=== PATIENT | female | born 1985 | race Caucasian/White ===

== ENCOUNTER 2022-08-15 19:00 | Inpatient (IN) | payer BC ==
[2022-08-16] MEDS ORDERED: Bupivacaine 0.25% HCL 30 ML VIAL ONE (08:00)
[2022-08-16] MEDS ORDERED: ePHEDrine Sulfate 50 MG/10 ML VIAL ONE (08:00)
[2022-08-16] MEDS ORDERED: Lidocaine 1% (PF) 30 ML VIAL SC PRN (21:51)
[2022-08-16] MEDS ORDERED: NS w/ Oxytocin 30 units 500 ML IV SCH ×2 (21:51)
[2022-08-16] MEDS ORDERED: Methylergonovine 0.2 MG/ML VIAL IM PRN (21:51)
[2022-08-16] MEDS ORDERED: Misoprostol 200 MCG TAB PR PRN (21:51)
[2022-08-16] MEDS ORDERED: Ibuprofen 800 MG TAB PO PRN (21:51)
[2022-08-16] MEDS ORDERED: Butorphanol Tartrate 1 MG/ML VIAL SLOW IVP PRN (21:51)
[2022-08-16] MEDS ORDERED: Carboprost 250 MCG/ML AMP IM PRN (21:51)
[2022-08-16] MEDS ORDERED: Diphenoxylate HCl/Atropine Tablet PO PRN ×2 (21:51)
[2022-08-16] MEDS ORDERED: hydrALAZINE 20 MG/ML VIAL SLOW IVP PRN (21:51)
[2022-08-16] MEDS ORDERED: HYDROcodone/Acetaminophen 5/325 mg Tablet PO PRN ×2 (21:51)
[2022-08-16] MEDS ORDERED: Promethazine HCl 25 MG/ML VIAL IM PRN (21:51)
[2022-08-16] MEDS ORDERED: Acetaminophen 500 MG TAB PO PRN (21:51)
[2022-08-16] MEDS ORDERED: Ondansetron PF 4 MG/2 ML Vial IVP PRN (21:51)
[2022-08-16 22:16] VITALS: BMI 29.5
[2022-08-16] MEDS: Lactated Ringer's 1,000 ML IV SCH (22:18)
[2022-08-16] MEDS ORDERED: Misoprostol 100 MCG TAB ONE (22:43)
[2022-08-16] MEDS: Misoprostol 100 MCG TAB VAG SCH (22:47)
[2022-08-16 23:17] LABS: Hemoglobin 11.3 g/dL (12.0-15.5); Mean Corpuscular HGB CONC 33.1 g/dL (32.0-36.0); Mean Corpuscular Hemoglobin 28.8 pg (27.0-33.0); Mean Platelet Volume 12.6 fl (7.4-10.4); Platelet Count 162 10x3/uL (150-450); Red Blood Cell (RBC) Count 3.92 10x6/uL (3.90-5.03); White Blood Cell (WBC) Count 8.4 10x3/uL (3.5-10.5)
[2022-08-16 23:48] LABS: SARS-CoV-2 NAA Rapid Test Not Detected (NotDetected)
[2022-08-16 23:49] LABS: Hep B Surf Ag Non-Reactive S/CO (NonReactive)
[2022-08-16 23:50] LABS: Syphilis Antibody Nonreactive (Nonreactive); Syphilis Antibody Index 0.06 S/CO (<1.00 Non-Reactive)
[2022-08-17] MEDS: Misoprostol 100 MCG TAB VAG SCH ×2 (03:00→13:18)
[2022-08-17] MEDS ORDERED: Fentanyl 2 mcg/Bup 0.1% Cadd 0 ML ONE (07:14)
[2022-08-17] MEDS ORDERED: Fentanyl 2 mcg/Bup 0.1% Cadd 100 ML ONE (07:21)
[2022-08-17] MEDS ORDERED: Naloxone HCl 0.4 mg/ml Vial IVP PRN ×2 (08:58)
[2022-08-17] MEDS ORDERED: Promethazine HCl 25 MG/ML VIAL IM PRN (08:58)
[2022-08-17] MEDS ORDERED: diphenhydrAMINE 50 MG/ML VIAL IVP PRN (08:58)
[2022-08-17] MEDS ORDERED: ePHEDrine Sulfate 50 MG/10 ML VIAL SLOW IVP PRN (08:58)
[2022-08-17] MEDS ORDERED: Moisturizing Cream (Eucerin) 113 GM JAR TOP PRN (08:58)
[2022-08-17] MEDS ORDERED: Lactated Ringer's 500 ML IV PRN (08:58)
[2022-08-17] MEDS ORDERED: Acetaminophen 325 MG TAB PO PRN (08:58)
[2022-08-17] MEDS ORDERED: Ondansetron PF 4 MG/2 ML Vial IVP PRN (08:58)
[2022-08-17] MEDS ORDERED: Fentanyl 2 mcg/Bupivacaine 0.1% Cassette 100 ML EPIDURAL SCH (09:00)
[2022-08-17] MEDS ORDERED: Communication Order-Pharmacy FS SCH (09:00)
[2022-08-17] MEDS ORDERED: Lanolin Ointment 7 GM TUBE TOP PRN (10:18)
[2022-08-17] MEDS ORDERED: Boostrix 0.5 ML (Tdap) VIAL (>/=7 yrs of age) IM ONE (10:18)
[2022-08-17] MEDS ORDERED: Milk Of Magnesia 30 ML UDCUP PO PRN (10:18)
[2022-08-17] MEDS ORDERED: Benzocaine-Menthol 82.5 ML CAN TOP PRN (10:18)
[2022-08-17] MEDS ORDERED: traMADol HCl 50 MG TAB PO PRN (10:18)
[2022-08-17] MEDS ORDERED: Bisacodyl 10 MG SUPP PR PRN (10:18)
[2022-08-17] MEDS ORDERED: Preparation H Ointment 28 GM TUBE PR PRN (10:18)
[2022-08-17] MEDS ORDERED: hydrALAZINE 20 MG/ML VIAL SLOW IVP PRN (10:18)
[2022-08-17] MEDS: Lactated Ringer's 1,000 ML IV SCH (13:18)
[2022-08-17] MEDS: Ibuprofen 800 MG TAB PO SCH ×2 (14:44→21:25)
[2022-08-17] MEDS: Docusate 100 MG CAP PO SCH (21:25)
[2022-08-18] MEDS: Ibuprofen 800 MG TAB PO SCH ×2 (05:14→14:24)
[2022-08-18] MEDS: Ferrous Sulfate 325 MG TAB PO SCH (07:04)
[2022-08-18] MEDS: Docusate 100 MG CAP PO SCH (07:34)
[2022-08-18 07:36] VITALS: BP 112/73; TEMP 98.4
== END 2022-08-18 15:15 | disposition home or self-care (01) | DRG 807 ==
LOC: CSHLD 08-16 19:06 → CSHPP 08-17 12:50
PROVIDERS: ADMIT Obstetrics & Gynecology; ATTEND Obstetrics & Gynecology
PROC: 10E0XZZ Delivery of Products of Conception, External Approach (ICD-10-PCS; principal; 2022-08-17)
PROC: 0W8NXZZ Division of Female Perineum, External Approach (ICD-10-PCS; 2022-08-17)
PROC: 3E0334Z Introduction of Serum, Toxoid and Vaccine into Peripheral Vein, Percutaneous Approach (ICD-10-PCS; 2022-08-17)
DX: O26.893 Other specified pregnancy related conditions, third trimester (principal); Z37.0 Single live birth; Z67.41 Type O blood, Rh negative; Z3A.39 39 weeks gestation of pregnancy; O76 Abnormality in fetal heart rate and rhythm complicating labor and delivery; Z20.822 Contact with and (suspected) exposure to COVID-19
CPT/HCPCS: 36415; 51702; 85027; 85461; 86780; 86850; 86870; 86900; 86901; 87340; 90384; 96372; J0595; J2590; J7120; S0020; U0002

== ENCOUNTER 2023-09-07 17:50 | Outpatient (CLI) | payer BC | END 2023-09-07 17:51 | disposition home or self-care (01) | LOC: CSHRAD 17:50 | PROVIDERS: ATTEND Family Medicine | DX: R05.1 Acute cough (principal) | CPT/HCPCS: 71046 ==